=== PATIENT | male | born 1980 | race Caucasian/White ===

== ENCOUNTER 2017-07-06 10:04 | Emergency (ER) | payer OTHER ==
[2017-07-06 10:12] VITALS: BP 147/82; PULSE 83; TEMP 98.7; BMI 40.3
--- NOTE | 2017-07-06 10:41 | PDOC ---
History of Present Illness - General Chief Complaint: Pain Stated Complaint: BACK PAIN,ABD DISCOMFORT Time Seen by Provider: 07/06/17 10:41 Past History - Past Medical History Allergies/Adverse Reactions: Allergies Allergy/AdvReac Type Severity Reaction Status Date / Time No Known Allergies Allergy Verified 07/06/17 10:12 Other medical history: NONE - Surgical History Abdominal Surgery: Yes (R INGUINAL) - Psycho/Social/Smoking Cessation Hx Anxiety: No Suicidal Ideation: No Smoking History: Current some day smoker Number of Cigarettes Smoked Daily: 2 Information on smoking cessation initiated: No Hx Alcohol Use: Yes (SOCIAL) Drug/Substance Use Hx: No Substance Use Type: None *Physical Exam - Vital Signs Last Vital Signs Temp Pulse Resp BP Pulse Ox 98.7 F 83 20 147/82 99 07/06/17 10:09 07/06/17 10:09 07/06/17 10:09 07/06/17 10:09 07/06/17 10:09
[2017-07-06] MEDS ORDERED: IBUPROFEN 600 MG TABLET (FP) PO ONE ×2 (10:55→11:10)
--- NOTE | 2017-07-06 10:55 | PDOC ---
History of Present Illness - General History Source: Patient Exam Limitations: No Limitations - History of Present Illness Initial Comments: 07/06/17 10:57 The patient is a 37 year old male who denies any past medical history who presents to the ED complaining of 5 days of left lower back pain. The patient describes his pain as achy in nature, initially worse with positional changes, now constant. Since yesterday his pain has been radiating to the left lower quadrant and left testicle. 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 The patient denies any hematuria, dysuria, frequency, or urgency. He denies any fever, chills, nausea, vomiting, or diarrhea. He denies numbness, tingling, or focal weakness. He denies taking any medications for his symptoms. <Nuria Valadez - Last Filed: 07/06/17 11:04> - General History Source: Patient Exam Limitations: No Limitations <Mily Stafford - Last Filed: 07/06/17 14:53> - General Chief Complaint: Pain Stated Complaint: BACK PAIN,ABD DISCOMFORT Time Seen by Provider: 07/06/17 10:41 Past History <Nuria Valadez - Last Filed: 07/06/17 11:04> - Past Medical History Other medical history: NONE - Surgical History Abdominal Surgery: Yes (R INGUINAL) - Psycho/Social/Smoking Cessation Hx Anxiety: No Suicidal Ideation: No Smoking History: Current some day smoker Number of Cigarettes Smoked Daily: 2 Information on smoking cessation initiated: No Hx Alcohol Use: Yes (SOCIAL) Drug/Substance Use Hx: No Substance Use Type: None <Mily Stafford - Last Filed: 07/06/17 14:53> - Past Medical History Allergies/Adverse Reactions: Allergies Allergy/AdvReac Type Severity Reaction Status Date / Time No Known Allergies Allergy Verified 07/06/17 10:12 Home Medications: Ambulatory Orders Ibuprofen 600 mg PO TID PRN #30 tablet 07/06/17 Review of Systems - Review of Systems Able to Perform ROS?: Yes Comments:: 07/06/17 11:02 GENERAL/CONSTITUTIONAL: No fever or chills. No weakness. HEAD, EYES, EARS, NOSE AND THROAT: No change in vision. No ear pain or discharge. No sore throat CARDIOVASCULAR: No chest pain or shortness of breath. RESPIRATORY: No cough, wheezing, or hemoptysis. GASTROINTESTINAL: +LLQ pain. No nausea, vomiting, diarrhea or constipation. GENITOURINARY: +L testicular pain. No dysuria, frequency, or change in urination. MUSCULOSKELETAL: +Left back pain. No midline back pain. No joint or muscle swelling or pain. No neck pain. SKIN: No rash NEUROLOGIC: No headache, vertigo, loss of consciousness, or change in strength/ sensation. ENDOCRINE: No increased thirst. No abnormal weight change. HEMATOLOGIC/LYMPHATIC: No anemia, easy bleeding, or history of blood clots. ALLERGIC/IMMUNOLOGIC: No hives or skin allergy. <Nuria Valadez - Last Filed: 07/06/17 11:04> *Physical Exam - Vital Signs Last Vital Signs Temp Pulse Resp BP Pulse Ox 98.7 F 83 20 147/82 99 07/06/17 10:09 07/06/17 10:09 07/06/17 10:09 07/06/17 10:09 07/06/17 10:09 - Physical Exam Comments: 07/06/17 11:02 GENERAL: Awake, alert, and fully oriented, in no acute distress HEAD: No signs of trauma EYES: PERRLA, EOMI, sclera anicteric, conjunctiva clear ENT: Auricles normal inspection, hearing grossly normal, nares patent, oropharynx clear without exudates. Moist mucosa NECK: Normal ROM, supple, no lymphadenopathy, JVD, or masses LUNGS: Breath sounds equal, clear to auscultation bilaterally. No wheezes, and no crackles HEART: Regular rate and rhythm, normal S1 and S2, no murmurs, rubs or gallops ABDOMEN: Soft, nontender, normoactive bowel sounds. No guarding, no rebound. No masses BACK: No midline spinal tenderness. No CVA tenderness. : Uncircumcised penis. No testicular tenderness bilaterally. No hernia. EXTREMITIES: Normal range of motion, no edema. No clubbing or cyanosis. No cords, erythema, or tenderness NEUROLOGICAL: Cranial nerves II through XII grossly intact. Normal speech, normal gait. 5/5 strength x 4 extremities. SKIN: Warm, Dry, normal turgor, no rashes or lesions noted. <Nuria Valadez - Last Filed: 07/06/17 11:04> - Vital Signs Last Vital Signs Temp Pulse Resp BP Pulse Ox 98.7 F 83 20 147/82 99 07/06/17 10:09 07/06/17 10:09 07/06/17 10:09 07/06/17 10:09 07/06/17 10:09 <Mily Stafford - Last Filed: 07/06/17 14:53> ED Treatment Course - LABORATORY CBC & Chemistry Diagram: 07/06/17 11:06 07/06/17 11:06 <Mily Stafford - Last Filed: 07/06/17 14:53> Medical Decision Making - Medical Decision Making 07/06/17 10:53 37 yo M no pmhx here with low back pain radiating to abd left testicle. no trauma no weakness. no f/c n/v. no hematuria. no dysuria. no mod factors. did not take anything for pain no known h/o kidney stones. on exam awake alert . abd soft NT no cva tendernes. no mildline spinal tenderness. 5/5 bilat lower ext strength. sensation intact. no testicular tendernss. no palp hernia. plan differential uti pyelo renal colic, .plan ua ct a/p wo, pain medication 07/06/17 14:40 pt feeling improved with motrin. ct with 2 mm mid ureter , no hydronephrosis. labs unremarkable dc with motrin, andurology follow up. klaus <Mily Stafford - Last Filed: 07/06/17 14:53> *DC/Admit/Observation/Transfer - Attestations Scribe Attestion: 07/06/17 11:04 Documentation prepared by Nuria Valadez, acting as back office medical assistant for Mily Stafford MD. <Nuria Valadez - Last Filed: 07/06/17 11:04> - Discharge Dispostion Admit: No <Mily Stafford - Last Filed: 07/06/17 14:53> Diagnosis at time of Disposition: Renal colic on left side - Discharge Dispostion Disposition: HOME Condition at time of disposition: Improved - Prescriptions Prescriptions: Ibuprofen 600 mg PO TID PRN #30 tablet PRN Reason: Pain - Referrals Referrals: Blue Buchanan MD [Staff Physician] - - Patient Instructions Printed Discharge Instructions: Kidney Stones -- Adult Additional Instructions: take ibuprofen 600 mg every 8 hours as needed for pain. follow up with a urologist. call dr. Buchanan ( urologist) see referral info to schedule. return for severe worsening pain, vomiting, fever, inability to urinate or any concerns.
[2017-07-06 11:03] LABS: URINE APPEARANCE CLEAR; URINE BILIRUBIN NEGATIVE (NEGATIVE); URINE BLOOD 2+ (NEGATIVE); URINE COLOR YELLOW; URINE GLUCOSE (UA) NEGATIVE (NEGATIVE); URINE KETONE NEGATIVE (NEGATIVE); URINE LEUK ESTERASE NEGATIVE (NEGATIVE); URINE NITRITE NEGATIVE (NEGATIVE); URINE PROTEIN NEGATIVE (NEGATIVE)
[2017-07-06 11:09] LABS: URINE MUCUS FEW; URINE RBC 25 /hpf (0-3); URINE WBC 1 /hpf (3-5)
[2017-07-06 11:29] LABS: BASOPHIL 0.6 % (0-2.0); EOSINOPHIL 1.4 % (0-4.5); MCH 29.4 pg (25.7-33.7); MCHC 33.1 g/dl (32.0-35.9); MEAN CELL VOLUME 88.8 fl (80-96); MEAN PLT VOLUME 9.7 fl (7.5-11.1); NEUTROPHILS 42.2 % (42.8-82.8); PLATELET COUNT 211 K/MM3 (134-434); RDW 14.2 % (11.9-15.9); WHITE BLOOD COUNT 4.3 K/mm3 (4.0-10.0)
[2017-07-06 11:53] LABS: ALBUMIN 4.4 g/dl (3.4-5.0); ANION GAP 7 (8-16); BILIRUBIN,TOTAL 0.8 mg/dL (0.2-1.0); CALCIUM 9.3 mg/dL (8.5-10.1); CO2 29 mmol/L (21-32); GLUCOSE,RANDOM 105 mg/dL (74-106); SGOT/AST 18 U/L (15-37); SGPT/ALT 34 U/L (12-78); TOT PROT 7.9 g/dl (6.4-8.2)
[2017-07-06 11:54] LABS: ALK PHOS 101 U/L (45-117)
== END 2017-07-06 15:23 | disposition home or self-care (01) ==
LOC: JER 10:04
DX: N20.0 Calculus of kidney (principal)
CPT/HCPCS: 36415; 74176; 80053; 81003; 81015; 85025; 99282-25